=== PATIENT | female | born 1970 | race Caucasian/White ===

== ENCOUNTER 2018-10-24 15:52 | Emergency (ER) | payer OTHER ==
--- OUTSIDE RECORDS SUMMARY | 2018-10-24 16:11 | XMS REPORT | Continuity of Care Document ---
:1970 External Reference #:[id number] Author Name Cherie Barrett MD Address [address] [place] [id number] Care Team Providers Name Role Phone Eugene Hu DO Primary Care Physician Unavailable Payers Date Identification Numbers Payment Provider Subscriber Policy Number: [id number] [facility] Nancy Thompson PayID: [id number] [place] [address] Advance Directives Description No Information Available Problems Active Problems Provider Date Crohn's disease Corey Thompson MD Onset: 06/28/2012 Crohn's disease of small intestine Renate Johnson PA-C Onset: 2017 Family History Date Family Member(s) Observation Comments First Brother Crohn's Disease Social History Type Date Description Comments Sex Unknown Tobacco Use Start: Unknown Patient has never smoked Smoking Status Reviewed: 09/27/18 Patient has never smoked Allergies, Adverse Reactions, Alerts Description No Known Drug Allergies Medications Active Medications SIG Qnty Indications Ordering Date Provider Blood Work cbc, liver Renate Meneses 08/18/2016 panel, vitamin NETTIE Johnson b12 level (to be done ~02/2018) Welchol twice a day 60tabs Cherie 05/16/2012 625mg Tablets MD Nena Mercaptopurine 2 by mouth daily 60tabs Renate Meneses 02/01/2012 50mg Tablets NETTIE Johnson Immunizations Description No Information Available Vital Signs Date Vital Result Comment 09/27/2018 3:39pm Height 60 inches 5'0" Weight 136.00 lb BP Systolic 125 mmHg BP Diastolic 72 mmHg Heart Rate 68 /min BMI (Body Mass Index) 26.6 kg/m2 03/15/2018 9:08am Height 60 inches 5'0" Weight 135.00 lb BP Systolic 114 mmHg BP Diastolic 81 mmHg Heart Rate 83 /min BMI (Body Mass Index) 26.4 kg/m2 08/24/2017 9:18am Height 60 inches 5'0" Weight 146.00 lb BP Systolic 120 mmHg BP Diastolic 98 mmHg Heart Rate 63 /min BMI (Body Mass Index) 28.5 kg/m2 08/18/2016 8:57am Height 60 inches 5'0" Weight 120.00 lb BP Systolic 104 mmHg BP Diastolic 72 mmHg Heart Rate 55 /min BMI (Body Mass Index) 23.4 kg/m2 08/06/2015 8:47am Height 60 inches 5'0" Weight 111.00 lb BP Systolic 118 mmHg BP Diastolic 73 mmHg Heart Rate 70 /min BMI (Body Mass Index) 21.7 kg/m2 07/31/2014 8:44am Height 60 inches 5'0" Weight 113.00 lb BP Systolic 104 mmHg BP Diastolic 52 mmHg Heart Rate 70 /min BMI (Body Mass Index) 22.1 kg/m2 08/01/2013 8:51am Height 60 inches 5'0" Weight 127.00 lb BP Systolic 100 mmHg BP Diastolic 70 mmHg Heart Rate 72 /min BMI (Body Mass Index) 24.8 kg/m2 06/28/2012 9:16am Height 60 inches 5'0" Weight 127.00 lb BP Systolic 120 mmHg BP Diastolic 72 mmHg Heart Rate 70 /min BMI (Body Mass Index) 24.8 kg/m2 Results Test Date Facility Test Result H/L Range Note CBC W/Auto 09/27/2018 [facility] White Blood 6.9 3/UL 4.8-10.8 Differential [address] Count Ser (!) [place] [address] Auto CNT [phone] RBC Red Blood Count 3.97 X106/UL Low 4.20-6.20 Hemoglobin Blood 12.6 g/dL 12.0-18.0 Hematocrit 38.5 % 35-52 MCV (Corpuscular Volume) 97.1 FL High 79-97 MCH (Corpuscular Hemoglobin) 31.6 pg High 27-31 MCHC (Corpuscular Hemog Conc) 32.6 g/dL 32.0-36.0 RDW 17.9 % High 10.5-15.0 Platelet Count Blood Auto CNT 190 X103/UL 150-450 MPV 8.8 FL 7.4-10.4 Lymph% 27.5 % 20.0-45.0 Allen% 1.4 % 1.0-9.0 Neutrophil % 71.1 % 38.0-83.0 Absolute Lymphocytes 1.9 X103/UL 1.0-4.8 Absolute Monocytes 0.1 X103/UL 0.0-0.8 Absolute Neutrophils 4.9 X103/UL 1.5-7.7 Comp Metabolic Panel 09/27/2018 [facility] [place] Sodium 138 mmol/L N 135-145 1 Potassium 4.3 mmol/L N 3.5-5.0 Chloride 107 mmol/L N 101-111 Co2 Carbon Dioxide 25 mmol/L N 22-32 Anion Gap 6 mmol/L N 2-11 Glucose 83 mg/dL N 70-100 Blood Urea Nitrogen 14 mg/dL N 6-24 Creatinine 0.81 mg/dL N 0.51-0.95 BUN/Creatinine Ratio 17.3 N 8-20 Calcium 9.1 mg/dL N 8.6-10.3 Total Protein 6.9 g/dL N 6.4-8.9 Albumin 4.3 g/dL N 3.2-5.2 Globulin 2.6 g/dL N 2-4 Albumin/Globulin Ratio 1.7 N 1-3 Total Bilirubin 0.70 mg/dL N 0.2-1.0 Alkaline Phosphatase 66 U/L N 34-104 Alt 9 U/L N 7-52 Ast 12 U/L Low 13-39 Egfr Non- 75.5 >60 Egfr 91.3 >60 2 Laboratory test 09/27/2018 [facility] [place] C Reactive 1.94 mg/L N <8.01 3 finding Protein Laboratory test 05/27/2018 [facility] [place] [facility] Surgical SEE RESULT 4, 5 finding Interface BELOW Order Laboratory test 03/15/2018 [facility] C-Reative 1.0 < 5.0 finding [address] [facility] [place] [address] [phone] CMP(!) 03/15/2018 [facility] Sodium(!) 137 mEq/L 134- 149 [address] [place] [address] [phone] Potassium(!) 4.7 mEq/L 3.6-5.5 Chloride Serum/Plasma(!) 102 mEq/L 94-112 Carbon Dioxide Ser/Plasm(!) 24 mEq/L 21-33 BUN - Urea Nitrogen(!) 10 mg/dL 6-24 Calcium Ser/Plasma Mass/Vol(!) 9.3 mg/dL 8.6-10.2 Creatinine Serum Mass/Vol(!) 0.9 mg/dL 0.5-1.4 Glucose Serum(!) 91 mg/dL 70-105 BUN/Creatinine Ratio(!) 11.1 RATIO 8.0-36 Albumin Serum/Plasma(!) 4.3 g/dL 3.5-5.2 Alkaline Phosphatase(!) 82 U/L 39-117 Bilirubin Total Mass/Vol 1.2 mg/dL 0.2-1.3 Ast - Sgot 14 U/L 5-34 Alt - SGPT 13 U/L 10-40 Protein Total 7.0 g/dL 6.2-8.1 CBC W/Auto 03/15/2018 [facility] White 7.1 3/UL 4.8- 10.8 Differential(!) [address] [facility] [place] [address] Count Ser [phone] Auto CNT RBC Red Blood Count 4.69 X106/UL 4.20-6.20 Hemoglobin Blood 14.2 g/dL 12.0-18.0 Hematocrit 44.9 % 35-52 MCV (Corpuscular Volume) 95.7 FL 79-97 MCH (Corpuscular Hemoglobin) 30.3 pg 27-31 MCHC (Corpuscular Hemog Conc) 31.6 g/dL Low 32.0-36.0 RDW 17.4 % High 10.5-15.0 Platelet Count Blood Auto CNT 263 X103/UL 150-450 MPV 8.3 FL 7.4-10.4 Lymph% 21.6 % 20.0-45.0 Allen% 8.4 % 1.0-9.0 Neutrophil % 70.0 % 38.0-83.0 Absolute Lymphocytes 1.5 X103/UL 1.0-4.8 Absolute Monocytes 0.6 X103/UL 0.0-0.8 Absolute Neutrophils 5.0 X103/UL 1.5-7.7 Laboratory test finding 03/15/2018 [facility] [place] Vitamin D Total 25(Oh) 20.9 ng/mL N 20-50 6 Vitamin B12 234 pg/mL N 180-914 7 CBC W/Auto 08/24/2017 [facility] White 7.7 3/UL 4.8- 10.8 Differential(!) [address] [facility] [place] [address] Count Ser [phone] Auto CNT RBC Red Blood Count 4.19 X106/UL Low 4.20-6.20 Hemoglobin Blood 13.2 g/dL 12.0-18.0 Hematocrit 41.5 % 35-52 MCV (Corpuscular Volume) 99.2 FL High 79-97 MCH (Corpuscular Hemoglobin) 31.5 pg High 27-31 MCHC (Corpuscular Hemog Conc) 31.7 g/dL Low 32.0-36.0 RDW 17.7 % High 10.5-15.0 Platelet Count Blood Auto CNT 308 X103/UL 150-450 MPV 8.7 FL 7.4-10.4 Lymph% 22.6 % 20.0-45.0 Allen% 2.0 % 1.0-9.0 Neutrophil % 75.4 % 38.0-83.0 Absolute Lymphocytes 1.7 X103/UL 1.0-4.8 Absolute Monocytes 0.2 X103/UL 0.0-0.8 Absolute Neutrophils 5.8 X103/UL 1.5-7.7 Liver 08/24/2017 [facility] Albumin 4.1 g/dL 3.5-5.2 Function [address] [facility] Serum/Plasma(!) Panel(!) [place] [address] [phone] Alkaline Phosphatase(!) 77 U/L 39-117 Bilirubin Direct Mass/Vol(!) 0.1 mg/dL 0.0-0.6 Bilirubin Total Mass/Vol 0.9 mg/dL 0.2-1.3 Ast - Sgot 14 U/L 5-34 Alt - SGPT 15 U/L 10-40 Total Protein 6.7 g/dL 6.2-8.1 CBC W/Auto 08/18/2016 [facility] White 5.8 3/UL 4.8- 10.8 Differential(!) [address] [facility] [place] [address] Count Ser [phone] Auto CNT RBC Red Blood Count 4.28 X106/UL 4.20-6.20 Hemoglobin Blood 13.6 g/dL 12.0-18.0 Hematocrit 42.8 % 35-52 MCV (Corpuscular Volume) 99.9 FL High 79-97 MCH (Corpuscular Hemoglobin) 31.7 pg High 27-31 MCHC (Corpuscular Hemog Conc) 31.8 g/dL Low 32.0-36.0 RDW 18.0 % High 10.5-15.0 Platelet Count Blood Auto CNT 244 X103/UL 150-450 MPV 8.7 FL 7.4-10.4 Lymph% 26.6 % 20.0-45.0 Allen% 3.3 % 1.0-9.0 Neutrophil % 70.1 % 38.0-83.0 Absolute Lymphocytes 1.5 X103/UL 1.0-4.8 Absolute Monocytes 0.2 X103/UL 0.0-0.8 Absolute Neutrophils 4.1 X103/UL 1.5-7.7 Liver 08/18/2016 [facility] Albumin 4.3 g/dL 3.5-5.2 Function [address] [facility] Serum/Plasma(!) Panel(!) [place] [address] [phone] Alkaline Phosphatase(!) 58 U/L 39-117 Bilirubin Direct Mass/Vol(!) 0.2 mg/dL 0.0-0.6 Bilirubin Total Mass/Vol 1.4 mg/dL High 0.2-1.3 Ast - Sgot 12 U/L 5-34 Alt - SGPT 8 U/L Low 10-40 Total Protein 6.7 g/dL 6.2-8.1 Laboratory test 08/18/2016 [facility] Vitamin B12 278 pg/mL N 180-914 8 finding Laboratory test 08/06/2015 [facility] Vitamin B12 221 pg/mL N 180-914 9 finding CBC W/Auto 08/06/2015 [facility] White Blood 5.8 3/UL 4.8-10.8 Differential(!) [address] [facility] [place] [address] Auto CNT [phone] RBC Red Blood Count 4.14 X106/UL Low 4.20-6.20 Hemoglobin Blood 13.0 g/dL 12.0-18.0 Hematocrit 41.1 % 35-52 MCV (Corpuscular Volume) 99.3 FL High 79-97 MCH (Corpuscular Hemoglobin) 31.5 pg High 27-31 MCHC (Corpuscular Hemog Conc) 31.7 g/dL Low 32.0-36.0 RDW 16.8 % High 10.5-15.0 Platelet Count Blood Auto CNT 175 X103/UL 150-450 MPV 8.9 FL 7.4-10.4 Lymph% 28.5 % 20.0-45.0 Allen% 2.2 % 1.0-9.0 Neutrophil % 69.3 % 38.0-83.0 Absolute Lymphocytes 1.7 X103/UL 1.0-4.8 Absolute Monocytes 0.1 X103/UL 0.0-0.8 Absolute Neutrophils 4.0 X103/UL 1.5-7.7 Liver 08/06/2015 [facility] Albumin 4.3 g/dL 3.5-5.2 Function [address] [facility] Serum/Plasma(!) Panel(!) [place], [place] [id number] [phone] Alkaline Phosphatase(!) 49 U/L 39-117 Bilirubin Direct Mass/Vol(!) 0.2 mg/dL 0.0-0.6 Bilirubin Total Mass/Vol 1.4 mg/dL High 0.2-1.3 Ast - Sgot 8 U/L 5-34 Alt - SGPT 6 U/L Low 10-40 Total Protein 6.6 g/dL 6.2-8.1 Laboratory test 07/31/2014 [facility] [place] Vitamin B12 241 pg/mL N 180-914 10 finding CBC W/Auto 07/31/2014 [facility] White Blood 4.8 3/UL 4.8-10.8 Differential(!) [address] [address] [place] [address] Auto CNT [phone] RBC Red Blood Count 4.03 X106/UL Low 4.20-6.20 Hemoglobin Blood 12.6 g/dL 12.0-18.0 Hematocrit 39.6 % 35-52 MCV (Corpuscular Volume) 98.4 FL High 79-97 MCH (Corpuscular Hemoglobin) 31.2 pg High 27-31 MCHC (Corpuscular Hemog Conc) 31.7 g/dL Low 32.0-36.0 RDW 16.6 % High 10.5-15.0 Platelet Count Blood Auto CNT 254 X103/UL 150-450 MPV 8.7 FL 7.4-10.4 Lymph% 26.9 % 20.0-45.0 Allen% 4.6 % 1.0-9.0 Neutrophil % 68.5 % 38.0-83.0 Absolute Lymphocytes 1.3 X103/UL 1.0-4.8 Absolute Monocytes 0.2 X103/UL 0.0-0.8 Absolute Neutrophils 3.3 X103/UL 1.5-7.7 Liver 07/31/2014 [facility] Albumin 4.3 g/dL 3.5-5.2 Function [address] [employer] [facility] Serum/Plasma(!) Panel(!) [place], [place] [address] [phone] Alkaline Phosphatase(!) 53 U/L 39-117 Bilirubin Direct Mass/Vol(!) 0.2 mg/dL 0.0-0.6 Bilirubin Total Mass/Vol 1.1 mg/dL 0.2-1.3 Ast - Sgot 12 U/L 5-34 Alt - SGPT 6 U/L Low 10-40 Total Protein 6.9 g/dL 6.2-8.1 Lipid Panel(!) 07/31/2014 [facility] Cholesterol 179 mg/ dL [phone] [facility] Total Mass/Vol [place], [place] [address] [phone] HDL Cholesterol Mol/Vol 64 30-85 Triglycerides Ser/Plas Mass/VL 50 mg/dL 30-150 LDL Cholesterol Mass/Vol(!) 105 mg/dL 0-130 Laboratory test 08/01/2013 [facility] Vitamin B12 307 pg/mL 180-914 11 finding CBC W/Auto 08/01/2013 [facility] White Blood 6.7 3/UL 4.8-10.8 Differential(!) [address] [place] [address] Auto CNT [phone] RBC Red Blood Count 4.13 X106/UL Low 4.20-6.20 Hemoglobin Blood 12.4 g/dL 12.0-18.0 Hematocrit 37.1 % 35-52 MCV (Corpuscular Volume) 89.8 FL 79-97 MCH (Corpuscular Hemoglobin) 29.9 pg 27-31 MCHC (Corpuscular Hemog Conc) 33.3 g/dL 32.0-36.0 RDW 16.4 % High 10.5-15.0 Platelet Count Blood Auto CNT 252 X103/UL 150-450 MPV 8.1 FL 7.4-10.4 Lymph% 24.3 % 20.0-45.0 Allen% 4.3 % 1.0-9.0 Neutrophil % 71.4 % 38.0-83.0 Absolute Lymphocytes 1.6 X103/UL 1.0-4.8 Absolute Monocytes 0.3 X103/UL 0.0-0.8 Absolute Neutrophils 4.8 X103/UL 1.5-7.7 Liver 08/01/2013 [facility] Albumin 4.4 g/dL 3.5-5.2 Function [facility] Serum/Plasma(!) Panel(!) [place] [address] [phone] Alkaline Phosphatase(!) 69 U/L 39-117 Bilirubin Direct Mass/Vol(!) 0.2 mg/dL 0.0-0.6 Bilirubin Total Mass/Vol 0.7 mg/dL 0.2-1.3 Ast - Sgot 16 U/L 5-34 Alt - SGPT 12 U/L 10-40 Total Protein 7.7 g/dL 6.2-8.1 CBC No Diff 11/23/2012 [facility] [place] White Blood Count 5.8 10^3/uL 4.8-10.8 Red Blood Count 3.94 10^6/uL Low 4.0-5.4 Hemoglobin 10.7 g/dL Low 12.0-16.0 Hematocrit 33 % Low 35-47 Mean Corpuscular Volume 84 fL 80-97 Mean Corpuscular Hemoglobin 27 pg 27-31 Mean Corpuscular HGB Conc 32 g/dL 31-36 Red Cell Distribution Width 19 % High 10.5-15 Platelet Count 307 10^3/uL 150-450 Mean Platelet Volume 11 um3 High 7.4-10.4 Liver Function Panel 11/23/2012 [facility] [place] Total Protein 6.8 g/dL 6.2-8.1 Albumin 3.9 g/dL 3.6-5.4 Globulin 2.9 g/dL 2-4 Albumin/Globulin Ratio 1.3 1-3 Total Bilirubin 1.1 mg/dL 0.4-1.5 Direct Bilirubin 0.1 mg/dL 0.1-0.5 Indirect Bilirubin 1.0 mg/dL 0.3-1.0 Alkaline Phosphatase 59 U/L 30-110 Alt 11 U/L Low 14-54 Ast 13 U/L 12-42 CBC W/Auto 06/28/2012 [facility] White 6.5 3/UL 4.8- 10.8 Differential(!) [address] [facility] [place] [address] Count Ser [phone] Auto CNT Lymph% 9.9 % Low 20.0-45.0 Allen% 1.3 % 1.0-9.0 Granulocyte Percentage 88.8 % High 38.0-83.0 Lymph# 0.6 Low 1.0-4.8 Allen# 0.1 0.0-0.8 Absolute Granulocyte 5.8 1.5-7.7 RBC Red Blood Count 3.85 X106/UL Low 4.20-6.20 Hemoglobin Blood 10.3 g/dL Low 12.0-18.0 Hematocrit 34.9 % Low 35-52 MCV (Corpuscular Volume) 90.9 FL 79-97 MCH (Corpuscular Hemoglobin) 26.8 pg Low 27-31 MCHC (Corpuscular Hemog Conc) 29.5 g/dL Low 32.0-36.0 RDW 18.7 % High 10.5-15.0 Platelet Count Blood Auto CNT 275 X103/UL 150-450 MPV 9.1 FL 7.4-10.4 Liver 06/28/2012 [facility] Albumin 4.6 g/dL 3.5-5.2 Function [address] [facility] Serum/Plasma(!) Panel(!) [place] [address] [phone] Alkaline Phosphatase(!) 73 U/L 39-117 Bilirubin Direct Mass/Vol(!) 0.2 mg/dL 0.0-0.6 Bilirubin Total Mass/Vol 0.8 mg/dL 0.2-1.3 Ast - Sgot 17 U/L 5-34 Alt - SGPT 18 U/L 10-40 Total Protein 7.5 g/dL 6.2-8.1 Globulin 2.9 g/dL 2.0-4.8 Alb/Glob(!) 1.6 RATIO 0.6-2.2 Laboratory test finding 06/28/2012 [facility] [place] Vitamin B12 271 pg/mL 180-914 CBC No Diff 02/01/2012 [facility] [place] White Blood Count 6.1 CUMM 4.8-10.8 Red Cell Count 3.76 CUMM Low 4.2-5.4 Hemoglobin 11.3 g/dL Low 12.0-16.0 Hematocrit 34 % Low 35-47 Mean Corpuscular Volume 89 um3 79-97 Mean Corpuscular Hemoglob 30 pg 27-31 Mean Corpuscular HGB Cone 34 g/dL 32-36 Redcell Distribution WDTH 19 % High 10.5-15 Platelet Count 286 CUMM 150-450 Mean Platelet Volume 10.3 um3 7.4-10.4 Liver Function Panel 02/01/2012 [facility] [place] Total Protein 6.6 GM/DL 6.2-8.1 Albumin 3.7 GM/DL 3.6-5.4 Globulin 2.9 GM/DL 2-4 Albumin/Globulin Ratio 1.3 1-3 Bilirubin Total 0.9 mg/dL 0.4-1.5 12 Bilirubin Direct 0.1 mg/dL 0.1-0.5 Indirect Bilirubin 0.8 mg/dL 0.3-1.0 13 Alkaline Phosphatase 59 U/L 30-110 Alt (SGPT) 12 U/L Low 14-54 Ast (Sgot) 15 U/L 12-42 RBC Morphology 02/01/2012 [facility] [place] Anisocytosis 4+ Hypochromasia 2+ Ovalocytes 1+ Laboratory test finding 06/16/2011 [facility] [place] Vitamin B12 312 pg/mL 180-914 Vitamin D, 25 Hydroxy 06/16/2011 [facility] [place] 25-Hydroxy Vitamin D2 <4.0 ng/mL ( ) 25-Hydroxy Vitamin D3 29 ng/mL () 25-Hydroxy Vitamin D Total 29 ng/mL () 14 1 [id number] 2 Because ethnic data is not always readily available, this report includes an eGFR for both -Americans and non- Americans. The National Kidney Disease Education Program (NKDEP) does not endorse the use of the MDRD equation for patients that are not between the ages of 18 and 70, are , have extremes of body size, muscle mass, or nutritional status, or are non- or non-. According to the National Kidney Foundation, irrespective of diagnosis, the stage of the disease is based on the level of kidney function: Stage Description GFR(mL/min/1.73 m(2)) 1 Kidney damage with normal or decreased GFR 90 2 Kidney damage with mild decrease in GFR 60-89 3 Moderate decrease in GFR 30-59 4 Severe decrease in GFR 15-29 5 Kidney failure <15 (or dialysis) 3 [id number] 4 [id number] 5 SEE RESULT BELOW Name: BIRDNANCY R : [address]: Cherie Barrett MD Acct: [id number] Unit: [id number] AGE: 48 Location: [facility] Re05/27/18 SEX: F Status: DEP REF SPEC: [id number] SAMEERA: 05/27/[address] [facility] [address]: Cherie Chapa MD REQ: [id number] RECD: 05/27/18 STATUS: FLORENCE PATTERSON DR: Eugene Hu DO _ ORDERED: LEVEL 4/7 COMMENTS: [id number] FINAL DIAGNOSIS 1. Ileocolonic anastomosis, biopsy: -- Benign colonic mucosa with no significant pathologic abnormalities. 2. Colon, anastomosis, biopsy: -- Benign small intestinal and colonic mucosa with no significant pathologic abnormalities. 3. Colon, transverse, biopsy: -- Benign colonic mucosa with no significant pathologic abnormalities. 4. Colon, descending, biopsy: -- Benign colonic mucosa with no significant pathologic abnormalities. 5. Colon, sigmoid, biopsy: -- Benign colonic mucosa with no significant pathologic abnormalities. 6. Colon, rectum, biopsy: -- Benign colonic mucosa with no significant pathologic abnormalities. 7. Colon, distal rectum, biopsy: -- Benign colonic mucosa with no significant pathologic abnormalities. COMMENT: Sections from throughout the colon and anastomosis show no significant pathologic abnormalities. There is no evidence of active or chronic enteritis. Dysplasia is absent. CONTINUED ON NEXT PAGE DEPARTMENT OF PATHOLOGY, [address] [place] [address] Korey Arredondo M.D. Director [facility] # [id number] RUN DATE: 05/30/18 [facility] LAB LIVE PAGE 2 Patient: NANCY THOMPSON [id number] (Continued) CLINICAL HISTORY (Continued) CLINICAL HISTORY Crohn?s surveillance POST-OPERATIVE DIAGNOSIS Colonoscopy to ileocolonic anastomosis; difficult, looping; colon-normal, biopsy; 0-5 cm mild edema, erythema; neoterminal ileum briefly evaluated, looked normal; ileocolonic anastomosis friable, but normal-biopsy; hypertrophied anal papillae GROSS DESCRIPTION 1. The specimen is received in formalin labeled, Biopsy Ileocolonic Anastomosis, and consists of a 0.7 x 0.3 x 0.2 cm aggregate of a speckled hameed-red irregular to polypoid soft tissue fragments which is entirely submitted in one cassette. 2. The specimen is received in formalin labeled, Colonic Anastomosis Biopsies, and consists of a 0.8 by up to 0.5 x 0.2 cm aggregate of hameed-brown irregular to polypoid soft tissue fragments which is entirely submitted in one cassette. 3. The specimen is received in formalin labeled, Transverse Colon Biopsies , and consists of a 1.0 x 0.8 x 0.2 cm aggregate of speckled hameed-brown irregular to polypoid soft tissue fragments which is entirely submitted in one cassette. 4. The specimen is received in formalin labeled, Descending Colon Biopsies , and consists of a 1.2 x 0.7 by up to 0.2 cm aggregate of speckled hameed-red irregular to polypoid soft tissue fragments which is entirely submitted in one cassette. 5. The specimen is received in formalin labeled, Sigmoid Colon Biopsies, and consists of a 1.0 x 0.8 x 0.2 cm aggregate of hameed-red irregular to polypoid soft tissue fragments which is entirely submitted in one cassette. 6. The specimen is received in formalin labeled, Rectal Biopsies, and consists of a 0.8 x 0.6 x 0.3 cm aggregate of speckled hameed-red irregular to polypoid soft tissue fragments which is entirely submitted in one cassette. 7. The specimen is received in formalin labeled, Distal Rectum Biopsies, and consists of two hameed-pink irregular to polypoid soft tissue fragments averaging 0.4 x 0.3 x 0.2 cm which are entirely submitted in one cassette. CONTINUED ON NEXT PAGE DEPARTMENT OF PATHOLOGY, [address] [place] [address] Korey Arredondo M.D. Director [facility] # [id number] RUN DATE: 05/30/18 [facility] LAB LIVE PAGE 3 Patient: NANCY THOMPSON [id number] (Continued) GROSS DESCRIPTION (Continued) Signed by and Reported on: Sherice Espinoza MD 05/30/18 1332 END OF REPORT DEPARTMENT OF PATHOLOGY, [address] [place] [address] Korey Arredondo M.D. Director [facility] # [id number] Normal Range 180 to 914 Indeterminate Range 145 to 180 Deficient Range <145 8 Normal Range 180 to 914 Indeterminate Range 145 to 180 Deficient Range <145 9 Normal Range 180 to 914 Indeterminate Range 145 to 180 Deficient Range <145 10 Normal Range 180 to 914 Indeterminate Range 145 to 180 Deficient Range <145 11 Normal Range 180 to 914 Indeterminate Range 145 to 180 Deficient Range <145 12 A metabolite of Naproxen, O-desmethylnaproxen, has been shown to interfere with the Jendrassik-Jessi method for measuring total bilirubin. Samples from patients who have taken Naproxen have shown spurious elevation in total bilirubin levels. 13 Please note updated reference range, effective 12/12/09 14 -- REFERENCE VALUE -- 25-HYDROXY D TOTAL (D2+D3) Optimum levels in the normal population are 25-80 Test Performed by: [facility] Dpt of Lab Med and Pathology [address] [place] [address] Medical Legal Investigator: Solomon Fink III, M.D. 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 Office 08/24/2017 [facility]enter[facility] Renate Meneses K50.00 Crohn's disease Visit 9:[facility] Ed[facility] Johnson, of small PA-C intestine without complications 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 Office Visit 08/18/2016 [facility]enter[facility] Corey Lema K50.00 Crohn's disease of 9:00a Cipriano Thompson MD small intestine without complications Office Visit 08/06/2015 [facility] Corey Lema M81.8 Other osteoporosis 9:00a Cipriano Thompson MD without current pathological fracture K50.00 Crohn's disease of small intestine without complications Z79.899 Other custodial (current) drug therapy Office Visit 07/31/2014 9:00a [facility] Corey Lema 555.9 [facility] Ed[facility] Thompson MD Disease V58.69 Medications Director Online Marketing (Current) Use Encounter Office Visit 08/01/2013 9:00a [facility] Corey Lema 555.9 [facility] Thompson MD Disease V76.51 Special Screening For Malignant Neoplasms Colon Office Visit 06/28/2012 Tiffany Lema 555.9 Crohn's Disease 9:30a [facility] Edilberto Thompson MD Office Visit 06/16/2011 Gastroenterfrancoise Lema V58.69 Medications Long 8:00a [facility] Thompson MD Term (Current) Use Encounter 555.9 Crohn's Disease Office Visit 06/10/2010 8:00a Gastroenterfrancoise Lema 555.9 [facility] Thompson MD Disease Plan of Treatment Future Appointment(s):03/31/2019 4:00 pm - Cherie Barrett MD at [facility]09/27/2018 - Cherie Barrett MDK50.819 Crohn's disease of both small and large intestine with unspecified complications
[2018-10-24 16:18] VITALS: BP 119/62
--- NOTE | 2018-10-24 16:36 | UC ---
Lower Extremity/Ankle HPI - History of Current Complaint Chief Complaint: UCLowerExtremity Stated Complaint: LEFT FOOT PAIN Time Seen by Provider: 10/24/18 16:12 Hx Obtained From: Patient Hx Last Menstrual Period: 10/09/18 ?: No Onset/Duration: Sudden Onset, Lasting Weeks, Resolved Severity Initially: Moderate Severity Currently: Moderate Pain Intensity: 4 Pain Scale Used: 0-10 Numeric Aggravating Factor(s): Standing, Ambulation Alleviating Factor(s): Rest Able to Bear Weight: Yes - Allergies/Home Medications Allergies/Adverse Reactions: Allergies Allergy/AdvReac Type Severity Reaction Status Date / Time No Known Allergies Allergy Verified 05/27/18 12:56 PMH/Surg Hx/FS Hx/Imm Hx Previously Healthy: Yes - Surgical History Surgical History: Yes Surgery Procedure, Year, and Place: partial bowel removal, disectomy 2004 - Social History Alcohol Use: None Substance Use Type: None Smoking Status (MU): Never Smoked Tobacco - Immunization History Most Recent Influenza Vaccination: 2013 Review of Systems All Other Systems Reviewed And Are Negative: Yes Physical Exam Triage Information Reviewed: Yes Appearance: Well-Appearing, No Pain Distress, Well-Nourished Vital Signs: Initial Vital Signs Temp 98.2 F 10/24/18 16:12 Pulse 70 10/24/18 16:12 Resp 16 10/24/18 16:12 BP 119/62 10/24/18 16:12 Pulse Ox 99 10/24/18 16:12 Vital Signs Reviewed: Yes Eyes: Positive: Conjunctiva Clear Musculoskeletal: Positive: Strength Intact, ROM Intact - full AROM of toes, ankle, Left side, No Edema, Other: - TTP over PF over 1st metatarsal, minmal tenderness over origin, no TTP over metatarsals no swelling, edema, bruising Neurological Exam: Normal Neurological: Positive: Alert, Other: - SITLT distal to ankle Psychological Exam: Normal Skin Exam: Normal Lower Extremity Course/Dx - Course Course Of Treatment: S/S consistent with plantar fascitis. STretching exercises given, boot at night, NSAIDS, follow up with ortho - Differential Dx/Diagnosis Provider Diagnosis: Plantar fasciitis of left foot Discharge - Sign-Out/Discharge Documenting (check all that apply): Patient Departure All imaging exams completed and their final reports reviewed: No Studies - Discharge Plan Condition: Good Disposition: HOME Patient Education Materials: Plantar Fasciitis Exercises (GEN), Plantar Fasciitis (ED) Referrals: Eugene Hu DO [Primary Care Provider] - Additional Instructions: - Plantar fascia night time brace daily - Stretches as shown to loosen area - Motrin/ Ibuprofen or Alleve to decrease pain, inflammation - Follow up with orthopedics if no improvement within 1-2 weeks - - Billing Disposition and Condition Condition: GOOD Disposition: Home
== END 2018-10-24 16:40 | disposition home or self-care (01) ==
LOC: UCCORT 15:52
DX: M72.2 Plantar fascial fibromatosis (principal)
CPT/HCPCS: 99212; G0463

== ENCOUNTER 2018-11-17 12:21 | Emergency (ER) | payer OTHER ==
[2018-11-17 13:23] VITALS: BP 122/77
--- NOTE | 2018-11-17 13:40 | UC ---
Respiratory Complaint HPI - HPI Summary HPI Summary: Pt presents with c/o dry, "hacking cough" X 3 days. Pt denies fever, chills, body aches, nasal congestion or SOB. - History of Current Complaint Chief Complaint: UCGeneralIllness Stated Complaint: COUGH Time Seen by Provider: 11/17/18 13:32 Hx Obtained From: Patient Hx Last Menstrual Period: November 12 Onset/Duration: Sudden Onset, Lasting Days, Still Present Timing: Intermittent Episodes Severity Initially: Mild Severity Currently: Mild Pain Intensity: 0 Character: Cough: Nonproductive Aggravating Factors: Exertion, Deep Breaths Associated Signs And Symptoms: Positive: Negative - Risk Factors Pulmonary Embolism Risk Factors: Negative Cardiac Risk Factors: Negative Pseudomonas Risk Factors: Negative Tuberculosis Risk Factors: Negative - Allergies/Home Medications Allergies/Adverse Reactions: Allergies Allergy/AdvReac Type Severity Reaction Status Date / Time No Known Allergies Allergy Verified 11/17/18 13:23 PMH/Surg Hx/FS Hx/Imm Hx Previously Healthy: Yes - Surgical History Surgical History: Yes Surgery Procedure, Year, and Place: partial bowel removal, disectomy 2004 - Family History Known Family History: Positive: Cardiac Disease - Social History Occupation: Employed Full-time Lives: With Family Alcohol Use: None Substance Use Type: None Smoking Status (MU): Never Smoked Tobacco Have You Smoked in the Last Year: No - Immunization History Most Recent Influenza Vaccination: 2013 Vaccination Up to Date: Yes Review of Systems All Other Systems Reviewed And Are Negative: Yes Constitutional: Positive: Negative Skin: Positive: Negative Eyes: Positive: Negative ENT: Positive: Negative Respiratory: Positive: Cough Cardiovascular: Positive: Negative Gastrointestinal: Positive: Negative Genitourinary: Positive: Negative Motor: Positive: Negative Neurovascular: Positive: Negative Musculoskeletal: Positive: Negative Neurological: Positive: Negative Psychological: Positive: Negative Is Patient Immunocompromised?: No Physical Exam Triage Information Reviewed: Yes Appearance: Well-Appearing Vital Signs: Initial Vital Signs Temp 98.0 F 11/17/18 13:18 Pulse 62 11/17/18 13:18 Resp 18 11/17/18 13:18 BP 122/77 11/17/18 13:18 Pulse Ox 99 11/17/18 13:18 Vital Signs Reviewed: Yes Eye Exam: Normal ENT Exam: Normal Dental Exam: Normal Neck exam: Normal Respiratory Exam: Normal Respiratory: Positive: Chest non-tender, Lungs clear, Normal breath sounds Cardiovascular Exam: Normal Musculoskeletal Exam: Normal Neurological Exam: Normal Psychological Exam: Normal Skin Exam: Normal Respiratory Course/Dx - Differential Dx/Diagnosis Differential Diagnosis/HQI/PQRI: Bronchitis Provider Diagnosis: Cough in adult Discharge - Sign-Out/Discharge Documenting (check all that apply): Patient Departure All imaging exams completed and their final reports reviewed: No Studies - Discharge Plan Condition: Stable Disposition: HOME Prescriptions: Benzonatate CAP* [Tessalon 100 MG CAP*] 100 mg PO Q8H PRN #30 cap PRN Reason: Cough predniSONE TAB* [Deltasone 20 MG TAB*] 20 mg PO DAILY #5 tab Patient Education Materials: Acute Cough (ED) Referrals: Eugene Hu DO [Primary Care Provider] - If Needed - Billing Disposition and Condition Condition: STABLE Disposition: Home
== END 2018-11-17 13:45 | disposition home or self-care (01) ==
LOC: UCCORT 12:21
DX: R05 Cough (principal)
CPT/HCPCS: 99212; G0463